=== PATIENT | male | born 1995 | race Caucasian/White ===

== ENCOUNTER 2017-08-07 15:30 | Outpatient (RCR) | payer OTHER ==
[~2017-08-07 15:30] MED LIST: AMOXICILLIN 8751 TAB PO
== END 2017-11-05 | disposition home or self-care (01) ==
LOC: WSOH
DX: S81.811A Laceration without foreign body, right lower leg, initial encounter (principal); W26.8XXA Contact with other sharp object(s), not elsewhere classified, initial encounter; Y93.E9 Activity, other interior property and clothing maintenance; Y92.214 College as the place of occurrence of the external cause; Y99.0 Civilian activity done for income or pay; Z87.891 Personal history of nicotine dependence